=== PATIENT | male | born 1980 | race Caucasian/White ===

== ENCOUNTER 2022-04-01 23:38 | Emergency (ER) | payer OTHER, MEDICAID ==
[~2022-04-01] VITALS: Ht 167.6 cm; Wt 81.2 kg
[2022-04-02 00:55] VITALS: BP 133/85
--- NOTE | 2022-04-02 00:55 | NUR ---
41 Y/O MALE BIBS FROM HOME, C/O REDNESS, PAIN SWELLING, ON HIS RT 5TH TOE FOR 5 DAYS. A/OX4, GCS-15; UNLABORED BREATHING, SPEAKING IN FULL SENTENCES; AMBULATORY W/O ASSISTANCE; SKIN PINK/WARM/DRY. NO PMH NKA
--- NOTE | 2022-04-02 00:58 | NUR ---
TO LOBBY A/W BED AMBULATORY
--- NOTE | 2022-04-02 01:00 | NUR ---
SEEN AND EXAMINED BY KAROLINA
[2022-04-02] MEDS ORDERED: CEPH-588 PO (01:03)
[2022-04-02] MEDS ORDERED: cephALEXin 500 MG CAP PO ONE (01:05)
[2022-04-02 01:30] VITALS: BP 130/84
--- NOTE | 2022-04-02 01:30 | NUR ---
Patient discharged with v/s stable. Written and verbal after care instructions given and explained. Patient alert, oriented and verbalized understanding of instructions. Ambulatory with steady gait. All questions addressed prior to discharge. ID band removed. Patient advised to follow up with PMD. Rx of KEFLEX given. Patient educated on indication of medication including possible reaction and side effects. Opportunity to ask questions provided and answered. VSS, A/OX4, AMBULATORY, UNLABORED BREATHING, AND CALM DEMEANOR.
== END 2022-04-02 01:30 | disposition home or self-care (01) ==
LOC: MED 23:38
DX: L03.115 Cellulitis of right lower limb (principal); Z79.899 Other long term (current) drug therapy
CPT/HCPCS: 99283

== ENCOUNTER 2022-04-25 17:26 | Emergency (ER) | payer OTHER, MEDICAID ==
[~2022-04-25] VITALS: Ht 167.6 cm; Wt 92.6 kg
[~2022-04-25 17:26] MED LIST: CEPH-588 PO
[2022-04-25 17:39] VITALS: BP 146/96
[2022-04-25] MEDS ORDERED: ACETAMINOPHEN 325 MG TAB PO ONE (17:50)
[2022-04-25] MEDS ORDERED: SULF-58 PO (18:51)
--- NOTE | 2022-04-25 19:30 | NUR ---
SEEN AND EXAMINED BY PA
[2022-04-25] MEDS ORDERED: ACETAMINOPHEN 325 MG TAB ONE (19:33)
[2022-04-25 20:10] VITALS: BP 129/79
== END 2022-04-25 20:10 | disposition home or self-care (01) ==
LOC: MED 17:26
DX: S99.921A Unspecified injury of right foot, initial encounter (principal); L08.9 Local infection of the skin and subcutaneous tissue, unspecified; Z79.899 Other long term (current) drug therapy; W23.0XXA Caught, crushed, jammed, or pinched between moving objects, initial encounter; Y93.89 Activity, other specified; Y92.89 Other specified places as the place of occurrence of the external cause; Y99.8 Other external cause status
CPT/HCPCS: 73630; 90471; 90715; 99283

== ENCOUNTER 2022-06-11 14:44 | Emergency (ER) | payer OTHER, MEDICAID ==
[~2022-06-11] VITALS: Ht 167.6 cm; Wt 91.6 kg
[~2022-06-11 14:44] MED LIST changes: +SULF-58 PO
[2022-06-11 15:03] VITALS: BP 135/80
--- NOTE | 2022-06-11 16:00 | NUR ---
41YO MALE PT C/O RL ABDOMINAL PAIN XTHIS MORNING. PT STATES EATING SPICY FOOD LAST NIGHT. DENIES DYSURIA, N/V/D , CHEST PAIN OR SOB. ABDOMEN NON DISTENDED OR TENDER TO TOUCH, ACTIVE X4. MILD RELIEF AFTER TAKING OTC PAIN RX. PT AAOX4, RESPIRATIONS EVEN AND UNLABPORED. HOB POSITIONED PER COMFORT. HX:DENIES NKA
--- NOTE | 2022-06-11 16:03 | NUR ---
MD LANDIN AT BEDSIDE FOR EVALUATION
[2022-06-11 16:08] LABS: BASOPHILS % (AUTO) 0.5 % (0.0-2.0); EOSINOPHILS # (AUTO) 0.2 K/uL (0-0.4); EOSINOPHILS % (AUTO) 2.8 % (0.0-4.0); HEMATOCRIT 44.4 % (36-52); HEMOGLOBIN 15.1 g/dL (12.0-18.0); LYMPHOCYTES # (AUTO) 3.1 K/uL (2.0-11.5); MEAN CORPUSCULAR HEMOGLOBIN 31 pg (27-31); MEAN CORPUSCULAR HGB CONC 34 g/dL (33-37); MEAN CORPUSCULAR VOLUME 90.1 fL (80-94); MONOCYTES # (AUTO) 0.7 K/uL (0.8-1.0); MONOCYTES % (AUTO) 7.5 % (1.7-9.3); NEUTROPHILS # (AUTO) 4.8 K/uL (1.8-7.7); NEUTROPHILS % (AUTO) 54.2 % (42.2-75.2); PLATELET COUNT (AUTO) 303 K/uL (140-450); RED BLOOD CELL COUNT(AUTO) 4.93 MIL/uL (4.20-6.10); RED CELL DISTRIBUTION WIDTH 13.5 % (11.6-13.7); WHITE BLOOD COUNT (AUTO) 8.9 K/uL (4.8-10.8)
[2022-06-11 16:18] LABS: APPEARANCE,URINE CLEAR (CLEAR); BILIRUBIN,URINE NEGATIVE (NEGATIVE); BLOOD, URINE TRACE-I (NEGATIVE); COLOR,URINE YELLOW (YELLOW); LEUKOCYTE ESTERASE ,URINE NEGATIVE (NEGATIVE); NITRITE, URINE NEGATIVE (NEGATIVE); UGLUCOSE NEGATIVE (NEGATIVE)
[2022-06-11 16:27] LABS: ALBUMIN 3.7 g/dL (3.4-5.0); ANION GAP 12.9 (8-16); CARBON DIOXIDE 25.8 mmol/L (21-32); CHLORIDE 103 mmol/L (98-107); CREATININE 1.1 mg/dL (0.6-1.3); GFR ARICAN-AMERICAN 95 mL/min (>90); GLUCOSE 104 mg/dL (74-106); POTASSIUM 3.7 mmol/L (3.5-5.1); TOTAL BILIRUBIN 0.3 mg/dL (0.0-1.0); UREA NITROGEN, BLOOD 14 mg/dL (7-18)
[2022-06-11 16:31] LABS: SODIUM SERUM 138 mmol/L (136-145)
[2022-06-11 16:38] LABS: OTHER CASTS, URINE None Seen /LPF (None Seen); RBC,URINE 0-5 /HPF (0-5); WBC,URINE 0-5 /HPF (0-5)
[2022-06-11] MEDS ORDERED: IBUP-2213 PO (17:08)
[2022-06-11 17:22] VITALS: BP 139/93
--- NOTE | 2022-06-11 17:22 | NUR ---
Patient discharged with v/s stable. Written and verbal after care instructions FOR ABDOMINAL PAIN given and explained. Patient alert, oriented and verbalized understanding of instructions. Ambulatory with steady gait. All questions addressed prior to discharge. ID band removed. Patient advised to follow up with PMD. Rx of IBUPROFEN given. Opportunity to ask questions provided and answered.
--- NOTE | 2022-06-11 17:59 | NUR ---
The patient's care was reviewed and supervised by Mónica Rodriguez RN.
== END 2022-06-11 17:22 | disposition home or self-care (01) ==
LOC: MED 14:44
DX: R10.31 Right lower quadrant pain (principal)
CPT/HCPCS: 36415; 80053; 81001; 85025; 87086; 99284

== ENCOUNTER 2022-10-31 13:24 | Emergency (ER) | payer OTHER, MEDICAID ==
[~2022-10-31] VITALS: Ht 167.6 cm; Wt 94.8 kg
[~2022-10-31 13:24] MED LIST changes: +IBUP-2213 PO
[2022-10-31 13:26] VITALS: BP 121/72
--- NOTE | 2022-10-31 13:30 | NUR ---
PT AMB TO BED 8
--- NOTE | 2022-10-31 13:51 | NUR ---
MEDICAL STUDENT AT BEDSIDE.
--- NOTE | 2022-10-31 14:03 | NUR ---
JENNY OSORIO AT BEDSIDE.
[2022-10-31] MEDS ORDERED: KETOROLAC 30 MG/ML VIAL IM ONE (14:10)
--- NOTE | 2022-10-31 14:20 | NUR ---
PT TO X-RAY VIA WHEELCHAIR.
[2022-10-31] MEDS ORDERED: CAPS1ADH5 TP (15:37)
[2022-10-31] MEDS ORDERED: NAPR-1704 PO (15:37)
--- NOTE | 2022-10-31 15:44 | NUR ---
Patient discharged with v/s stable. Written and verbal after care instructions given and explained. Patient alert, oriented and verbalized understanding of instructions. Ambulatory with steady gait. All questions addressed prior to discharge. ID band removed. Patient advised to follow up with PMD. Rx of CAPSAICIN/MENTHOL, NAPROXEN given. Opportunity to ask questions provided and answered.
== END 2022-10-31 15:44 | disposition home or self-care (01) ==
LOC: MED 13:24
DX: S16.1XXA Strain of muscle, fascia and tendon at neck level, initial encounter (principal); V49.88XA Car occupant (driver) (passenger) injured in other specified transport accidents, initial encounter; Y93.89 Activity, other specified; Y92.89 Other specified places as the place of occurrence of the external cause; Y99.8 Other external cause status
CPT/HCPCS: 72050; 72072; 96372; 99284; J1885

== ENCOUNTER 2023-05-07 14:12 | Emergency (ER) | payer OTHER, MEDICAID ==
[~2023-05-07] VITALS: Ht 167.6 cm; Wt 68.5 kg
[~2023-05-07 14:12] MED LIST changes: +CAPS1ADH5 TP; +NAPR-1704 PO
[2023-05-07 14:18] VITALS: BP 142/79; PULSE 89; RESP 20; TEMP 98; O2SAT 99
[2023-05-07] MEDS ORDERED: BACITRACIN OINT 500 UNITS/GM PKT TP ONE (14:40)
[2023-05-07] MEDS ORDERED: ACETAMINOPHEN EXTRA STRENGTH 500 MG TAB PO ONE (14:40)
[2023-05-07] MEDS ORDERED: CEPH-588 PO (14:46)
[2023-05-07 15:33] VITALS: BP 139/95; PULSE 98; RESP 16; TEMP 98.5; O2SAT 95
== END 2023-05-07 15:33 | disposition home or self-care (01) ==
LOC: MED 14:12
DX: S91.232A Puncture wound without foreign body of left great toe with damage to nail, initial encounter (principal); X58.XXXA Exposure to other specified factors, initial encounter; Y93.89 Activity, other specified; Y92.89 Other specified places as the place of occurrence of the external cause; Y99.8 Other external cause status
CPT/HCPCS: 90471; 90715; 99283